=== PATIENT | male | born 1965 | race Caucasian/White ===

== ENCOUNTER → 2024-08-05 | Outpatient (CLI) | payer OTHER ==
[2024-08-05 14:39] VITALS: PULSE 74; RESP 16; TEMP 98.5; BMI 44.4
[2024-08-05 14:55] VITALS: BP 160/88
--- NOTE | 2024-08-05 15:35 | P.HPBAR ---
Bariatric H&P - History & Physicial H&P Date: 08/05/24 History & Physicial: Visit/CC: Initial Visit Patient initial contact: Initial weight: 149.685 kg Initial weight in pounds: 330.00 Height: 6 ft 0.25 in Initial BMI: 44.4` Last weight: Current weight: 149.685 kg Current weight in pounds: 330.00 Current BMI: 44.4 [place] body weight (based on NIH guidelines): 78.175 kg Excess body weight loss: 0.0% The patient is a 58 year-old M who presents for Bariatric Assessment. First time. Highest weight is 380 pounds. Weight loss tried is diet and exercise. He lost 100 pounds and get weight gain. He is down to 330 pounds. He is on many medications. NO stomach, esophageal cancer. NO colon cancer. No gallbladder. No family history of blood clots. NO heart problems. Had sleep study and stress test. Has sleep apnea. Has mask. No other belly surgery. Last colonoscopy 2 years. Long time upper scope. Her with . Has GERD at night. On diabetes medication with Trulicity. On insulin. Father had 1/2 stomach with ulcers. No inflammatory disease. No IBD. Guest Experience Specialist do not have. Needs EKG here. Is not going to harm you probably tell you lose more weight which is the oxymorphone of this conversation but the more you start knowing about yourself more powerful all this becomes and you can take this to some levels okay make sense. 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 2 rt eye surgeries Past Anesthesia/Blood Transfusion Reactions: No Reported Reaction Smoking Status: Former smoker - Past Family History Father Family Medical History: No Reported History Mother Family Medical History: AICD/Pacemaker, Congestive Heart Failure (CHF), Diabetes Mellitus, Hypertension, Rheumatoid Arthritis (RA) Additional Family Medical History / Comment(s): lapband Surgical - Exam Vital Signs Temp Pulse Resp BP 98.5 F 74 16 149/101 08/05/24 14:33 08/05/24 14:33 08/05/24 14:33 08/05/24 14:33 Bariatric Checklist Checklist: Plan: Checklist: EGD: 1. Hiatal hernia: 2. H. Pylori: HgbA1c: Vitamin D: Smoking: Primary care physician referral: Brea Wilson Psychiatry clearance: Cardiology clearance: Sleep study: Diet journal: VTE risk score: VTE risk level: Rehab needs at discharge:
[2024-08-06 02:29] LABS: HCT 42.5 % (39.6-50.0); MCH 27.5 pg (27.0-32.0); MCHC 30.6 g/dL (32.0-37.0); MCV 89.9 FL (80.0-97.0); Mean Platelet Volume 10.7 FL (9.5-12.2); NRBC Per 100 WBC 0 X 10*3/uL (0.00-0.01); Platelet Count 300 X 10*3/uL (140-440); RBC 4.73 X 10*6/uL (4.40-5.60); RDW 13.1 % (11.5-14.5); WBC 8.84 X 10*3/uL (4.50-10.00)
[2024-08-06 03:07] LABS: Prealbumin 19.4 mg/dL (18.0-42.0)
[2024-08-06 03:12] LABS: % Iron Saturation 17.68 (15.00-50.00); ALT 17 U/L (10-49); AST 16 U/L (14-35); Albumin 4.2 g/dL (3.8-4.9); Albumin/Globulin Ratio 1.68 Ratio (1.60-3.17); Alkaline Phosphatase 76 U/L (41-126); BUN/Creat Ratio 16.11 Ratio (12.00-20.00); Blood Urea Nitrogen 14.5 mg/dL (9.0-27.0); Calcium 9.1 mg/dL (8.7-10.3); Carbon Dioxide 28.2 mmol/L (21.6-31.8); Chloride 102 mmol/L (96-109); Chol/HDL Ratio 2.52 Ratio; Globulin 2.5 g/dL (1.6-3.3); Glucose 121 mg/dL (70-110); Iron 55 UG/DL (65-175); LDL Cholesterol,Calculated 54.6 mg/dL (0.0-131.0); Potassium 4.5 mmol/L (3.5-5.5); Sodium 140 mmol/L (135-145); Total Bilirubin <0.2 mg/dL (0.3-1.2); Total Iron Binding Capacity 311 UG/DL (228-460); Total Protein 6.7 g/dL (6.2-8.2)
[2024-08-06 10:57] LABS: Zinc, Serum 67 ug/dL (60-130)
[2024-08-07 06:11] LABS: Vitamin A 41 ug/dL (38-106)
== END ==
LOC: EDSEX 14:00 → BARWHC3 14:08
PROVIDERS: ATTEND Surgery Plastic and Reconstructive Surgery
DX: E66.01 Morbid (severe) obesity due to excess calories (principal); D50.8 Other iron deficiency anemias; K91.2 Postsurgical malabsorption, not elsewhere classified; E44.1 Mild protein-calorie malnutrition; E45 Retarded development following protein-calorie malnutrition; E55.9 Vitamin D deficiency, unspecified; K74.1 Hepatic sclerosis; N19 Unspecified kidney failure; T56.894A Toxic effect of other metals, undetermined, initial encounter; K50.90 Crohn's disease, unspecified, without complications; Z68.44 Body mass index [BMI] 60.0-69.9, adult; Z87.891 Personal history of nicotine dependence
CPT/HCPCS: 84255; 84134; 84425; 80061; 80053; 82607; 82728; 82525; 82746; 83540; 83550; 83735; 84100; 84443; 84590; 84630; 85027; 85730; 82306; 83970; 83036; 80307; G0480; G0463; 80323; 99202